=== PATIENT | male | born 2000 | race Caucasian/White ===

== ENCOUNTER 2024-11-14 11:15 | Emergency (ER) | payer OTHER ==
[~2024-11-14] VITALS: Ht 172.7 cm; Wt 68.2 kg
[2024-11-14] MEDS: KETOROLAC 60MG 2ML VIAL IM ONE (14:16)
[2024-11-14 15:29] VITALS: BP 122/72; TEMP 98.2; O2SAT 98
== END 2024-11-14 15:30 | disposition home or self-care (01) ==
LOC: M ED 11:15
DX: S30.0XXA Contusion of lower back and pelvis, initial encounter (principal); M25.562 Pain in left knee; M25.561 Pain in right knee; W01.0XXA Fall on same level from slipping, tripping and stumbling without subsequent striking against object, initial encounter; Y92.410 Unspecified street and highway as the place of occurrence of the external cause; Y93.02 Activity, running; Y99.9 Unspecified external cause status
CPT/HCPCS: 72192; 73564; 96372; 99284; J1885

== ENCOUNTER 2025-05-22 07:39 | Emergency (ER) | payer OTHER ==
[~2025-05-22] VITALS: Ht 170.2 cm; Wt 71.2 kg
[2025-05-22 12:06] VITALS: BP 137/79; TEMP 98.7; O2SAT 99
== END 2025-05-22 12:07 | disposition home or self-care (01) ==
LOC: M ED 07:39
DX: S39.011A Strain of muscle, fascia and tendon of abdomen, initial encounter (principal); X50.0XXA Overexertion from strenuous movement or load, initial encounter; Y92.89 Other specified places as the place of occurrence of the external cause; Y93.B9 Activity, other involving muscle strengthening exercises; Y99.1 Military activity